=== PATIENT | female | born 2000 | race Two or more races ===

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

== ENCOUNTER 2019-01-11 06:43 | Emergency (ER) | payer OTHER ==
[~2019-01-11] VITALS: Ht 165.1 cm; Wt 104.0 kg
[~2019-01-11 06:43] MED LIST changes: +BIRTH CONTROL; -BUPIVACAINE/PF 0.25% ONE
[2019-01-11 06:46] VITALS: BP 128/84
[2019-01-11 07:22] LABS: AMPHETAMINE SCREEN, URINE Negative (Negative); BARBITURATE SCREEN, URINE Negative (Negative); BENZODIAZEPINE SCREEN, URINE Negative (Negative); CANNABINOID SCREEN, URINE Negative (Negative); COCAINE SCREEN, URINE Negative (Negative); METHADONE SCREEN, URINE Negative (Negative); OPIATE SCREEN, URINE Negative (Negative)
[2019-01-11 07:23] LABS: MICROSCOPIC INDICATED
--- NOTE | 2019-01-11 07:25 | NUR ---
PT TO ROOM FROM [facility], PLACED ON MONITOR. NAD, VSS, CALL LIGHT WITHIN REACH
[2019-01-11 07:32] LABS: CULTURE INDICATED? YES
[2019-01-11 08:08] LABS: BASOPHILS # (AUTO) 0.05 x10^3/uL (0-0.3); BASOPHILS % (AUTO) 1 % (0-1); EOSINOPHILS # (AUTO) 0.14 x10^3/uL (0-0.8); EOSINOPHILS % (AUTO) 1 % (1-7); LYMPHOCYTES # (AUTO) 2.92 x10^3/uL (1-6.1); LYMPHOCYTES % (AUTO) 27 % (22-44); MD NO; MEAN CORPUSCULAR HEMOGLOBIN 25.6 pg (27.0-34.8); MEAN CORPUSCULAR VOLUME 77.4 fL (80-100); MONOCYTES # (AUTO) 0.94 x10^3/uL (0-1.4); MONOCYTES % (AUTO) 9 % (2-9); NEUTROPHILS # (AUTO) 6.89 x10^3/uL (1.8-8.0); NEUTROPHILS % (AUTO) 63 % (42-75); PLATELET COUNT 370 x10^3/uL (130-400); RED BLOOD COUNT 4.97 x10^6/uL (3.82-5.3)
[2019-01-11 08:19] LABS: ALANINE AMINOTRANSFERASE 18 U/L (12-78); ALBUMIN 3.8 g/dL (3.4-5.0); ANION GAP 7 mmol/L (5-15); CHLORIDE 105 mmol/L (98-107); CREATININE 0.69 mg/dL (0.55-1.02)
[2019-01-11 08:22] LABS: ALKALINE PHOSPHATASE 146 U/L (45-117); BILIRUBIN,TOTAL 0.5 mg/dL (0.2-1.0); TOTAL PROTEIN 7.8 g/dL (6.4-8.2)
[2019-01-11] MEDS ORDERED: CEFTRIAXONE 1,000 MG IM ONE (08:30)
[2019-01-11] MEDS ORDERED: CEFTRIAXONE 1,000 MG ONE (09:20)
== END 2019-01-11 09:34 | disposition home or self-care (01) ==
LOC: ED 09:28
DX: N30.01 Acute cystitis with hematuria (principal)
CPT/HCPCS: 36415; 80053; 80307; 81001; 84703; 85025; 87077; 87086; 87186; 96372; 99283; J0696

== ENCOUNTER 2020-10-10 14:11 | Emergency (ER) | payer OTHER ==
[~2020-10-10] VITALS: Ht 165.1 cm; Wt 126.3 kg
[~2020-10-10 14:11] MED LIST changes: +FLUO40CA2 PO
--- NOTE | 2020-10-10 14:38 | NUR ---
CECE PSYCH COAL PULVERIZER OPERATOR AT BEDSIDE FOR EVALUATION.
--- NOTE | 2020-10-10 14:38 | NUR ---
PATIENT WHEELED BACK FROM TRIAGE WITH CHIEF C/O SA. PATIENT REPORTS TAKING FIFTEEN 10 MG LEXAPRO PILLS AROUND 1340 TODAY IN AN ATTEMPT TO END HER LIFE. PILLS ARE NOT PATIENT'S PRESCRIPTION. PATIENT STATES SHE'S BEEN FEELING DEPRESSED, AND SAW HER EX WITH A NEW GIRLFRIEND AND "IT SENT ME OVER THE EDGE." PATIENT IS SUPPOSED TO BE ON ANTI-DEPRESSANTS BUT SHE STATES SHE DOESN'T TAKE HER MEDICATION. PATIENT DENIES HX OF ANY OTHER SA, DENIES HI. BLAYNE, CONNECTED TO NIB ADJUSTER, SITTER IN LINE OF SIGHT.
--- NOTE | 2020-10-10 14:59 | NUR ---
ERMD AT BEDSIDE FOR EVALUATION.
--- NOTE | 2020-10-10 15:12 | NUR ---
PATIENT TRANSFERRED TO ROOM 11, PATIENT TO BE PLACED ON LEGAL HOLD, SITTER IN LINE OF SIGHT.
[2020-10-10 15:31] LABS: BASOPHILS % (AUTO) 0 % (0-1); EOSINOPHILS % (AUTO) 1 % (1-7); LYMPHOCYTES % (AUTO) 33 % (22-44); MEAN CORPUSCULAR HEMOGLOBIN 24.9 pg (27.0-34.8); MEAN CORPUSCULAR HGB CONC 33.5 g/dL (32.4-35.8); MEAN PLATELET VOLUME 7.9 fL (7.4-10.4); MONOCYTES % (AUTO) 15 % (2-9); NEUTROPHILS % (AUTO) 52 % (42-75); PLATELET COUNT 340 x10^3/uL (130-400); RED CELL DISTRIBUTION WIDTH 15.9 % (9.6-15.2)
[2020-10-10 15:35] LABS: ALANINE AMINOTRANSFERASE 23 U/L (12-78); ALBUMIN 3.6 g/dL (3.4-5.0); ANION GAP 6 mmol/L (5-15); CALCIUM 8.6 mg/dL (8.5-10.1); CHLORIDE 109 mmol/L (98-107)
[2020-10-10 15:38] LABS: ALKALINE PHOSPHATASE 141 U/L (45-117); BILIRUBIN,TOTAL 0.3 mg/dL (0.2-1.0); TOTAL PROTEIN 8.2 g/dL (6.4-8.2)
[2020-10-10 15:40] LABS: SALICYLATE LEVEL < 1.7 mg/dL (2.8-20.0)
[2020-10-10 15:41] LABS: MD NO
[2020-10-10 15:53] LABS: AMPHETAMINE SCREEN, URINE Negative (Negative); BARBITURATE SCREEN, URINE Negative (Negative); BENZODIAZEPINE SCREEN, URINE Negative (Negative); CANNABINOID SCREEN, URINE Positive (Negative); COCAINE SCREEN, URINE Negative (Negative); METHADONE SCREEN, URINE Negative (Negative); OPIATE SCREEN, URINE Negative (Negative)
--- NOTE | 2020-10-10 16:04 | NUR ---
PATIENT RESTING IN GURNEY WATCHING TV, NADN, VSS, SITTER IN LINE OF SIGHT.
--- NOTE | 2020-10-10 17:41 | NUR ---
MOM AT BEDSIDE.
--- NOTE | 2020-10-10 17:45 | NUR ---
BREAK RN: PT TALKING WITH MOTHER. VS STABLE. NO ACUTE DISTRESS NOTED. SITTER AT DOOR. WILL CONTINUE TO MONITOR WHILE PRIMARY RN IS ON BREAK.
--- NOTE | 2020-10-10 18:21 | NUR ---
BREAK RN: REPORT GIVEN TO JOVANNY PHILIPPE
--- NOTE | 2020-10-10 18:27 | NUR ---
FOOD TRAY GIVEN TO PATIENT, MOM AT BEDSIDE, KRISTA CISNEROS, SITTER IN LINE OF SIGHT.
--- NOTE | 2020-10-10 18:56 | NUR ---
TP: PACKET FAXED TO [facility], [facility], AND [facility]
--- NOTE | 2020-10-10 19:24 | NUR ---
PATIENT REQUESTING MOM TO TAKE BELONGINGS THAT ARE LOCKED UP. BELONGINGS GIVEN TO MOM.
--- NOTE | 2020-10-10 19:24 | NUR ---
erica carrillo [phone]
--- NOTE | 2020-10-10 20:06 | NUR ---
SPOKE WITH [facility] STAFF, THEY ARE ACCEPTING PATIENT. Addendum: 10/10/20 at 2012 by KEVIN STAFF MEMBER'S NAME IS GENE.
--- NOTE | 2020-10-10 20:15 | NUR ---
SPOKE WITH MOM, GLYNN AND UPDATED ON POC, AND TRANSFER OF PATIENT TO [facility] SCHEDULED AT 2200.
--- NOTE | 2020-10-10 21:12 | NUR ---
WATER PROVIDED TO PATIENT, ANAN, SITTING IN GURNEY WATCHING TV, VSS, SITTER IN LINE OF SIGHT, WILL CONTINUE TO MONITOR.
[2020-10-10 21:34] VITALS: BP 128/59
--- NOTE | 2020-10-10 22:50 | NUR ---
PATIENT SITTING IN GURNEY, WATCHING TV, NADN, SITTER IN LINE OF SIGHT.
--- NOTE | 2020-10-10 23:28 | NUR ---
[facility] HERE FOR PATIENT, PATIENT STABLE AND AMBULATORY WITH STEADY GAIT FROM ED TO AMBULANCE WITH EMS AT SIDE.
== END 2020-10-10 23:29 ==
LOC: ED 15:41
DX: T43.222A Poisoning by selective serotonin reuptake inhibitors, intentional self-harm, initial encounter (principal); F33.9 Major depressive disorder, recurrent, unspecified; R94.31 Abnormal electrocardiogram [ECG] [EKG]; Y92.89 Other specified places as the place of occurrence of the external cause
CPT/HCPCS: 36415; 80053; 80299; 80307; 80320; 80329; 84703; 85025; 93005; 99285; G0480

== ENCOUNTER 2021-04-03 19:31 | Emergency (ER) | payer OTHER ==
[~2021-04-03] VITALS: Ht 165.1 cm; Wt 112.8 kg
[2021-04-03 19:40] VITALS: BP 134/74
--- NOTE | 2021-04-03 20:02 | NUR ---
DR.VAN PARKINSON AT BEDSIDE.
--- NOTE | 2021-04-03 20:21 | NUR ---
Patient given discharge instructions and they have confirmed that they understand the instructions. Patient ambulatory with steady gait.
== END 2021-04-03 20:23 | disposition home or self-care (01) ==
LOC: ED 20:01
DX: S16.1XXA Strain of muscle, fascia and tendon at neck level, initial encounter (principal); S80.11XA Contusion of right lower leg, initial encounter; V49.09XA Driver injured in collision with other motor vehicles in nontraffic accident, initial encounter; Y93.89 Activity, other specified; Y92.410 Unspecified street and highway as the place of occurrence of the external cause; Y99.8 Other external cause status
CPT/HCPCS: 99281

== ENCOUNTER 2021-06-23 21:30 | Emergency (ER) | payer OTHER ==
[~2021-06-23] VITALS: Ht 165.1 cm; Wt 105.0 kg
[2021-06-23] MEDS ORDERED: SODIUM CHLORIDE FLUSH 10ML SYR IVF ONE (22:00)
[2021-06-23] MEDS ORDERED: SODIUM CHLORIDE 0.9% 1,000ML IVBOLUS ONE (22:00)
[2021-06-23 23:04] LABS: BASOPHILS % (AUTO) 1 % (0-1); EOSINOPHILS % (AUTO) 0 % (1-7); LYMPHOCYTES % (AUTO) 24 % (22-44); MEAN CORPUSCULAR HEMOGLOBIN 26.2 pg (27.0-34.8); MEAN PLATELET VOLUME 8.7 fL (7.4-10.4); MONOCYTES % (AUTO) 10 % (2-9); NEUTROPHILS % (AUTO) 65 % (42-75); PLATELET COUNT 347 x10^3/uL (130-400); RED BLOOD COUNT 5.28 x10^6/uL (3.82-5.3); RED CELL DISTRIBUTION WIDTH 15.6 % (9.6-15.2)
[2021-06-23 23:11] LABS: ALANINE AMINOTRANSFERASE 20 U/L (12-78); ALBUMIN 3.2 g/dL (3.4-5.0); ANION GAP 8 mmol/L (5-15); CALCIUM 9.6 mg/dL (8.5-10.1); CHLORIDE 103 mmol/L (98-107)
[2021-06-23 23:29] LABS: ALKALINE PHOSPHATASE 104 U/L (45-117); BILIRUBIN,TOTAL 0.5 mg/dL (0.2-1.0); CREATININE 0.58 mg/dL (0.55-1.02); TOTAL PROTEIN 8.2 g/dL (6.4-8.2)
[2021-06-24] MEDS ORDERED: ONDANSETRON 2MG/ML, 2ML ONE
[2021-06-24] MEDS ORDERED: ONDANSETRON 2MG/ML, 2ML IVPush ONE
[2021-06-24 00:26] LABS: MICROSCOPIC INDICATED
--- NOTE | 2021-06-24 00:56 | NUR ---
PT STRAIGHT CATH. STERILE FIELD MAINTAINED. TOLERATED WELL. URINE SAMPLE WALKED TO LAB
[2021-06-24 01:01] LABS: MICROSCOPIC INDICATED
[2021-06-24 01:36] VITALS: BP 134/80
== END 2021-06-24 01:38 | disposition home or self-care (01) ==
LOC: ED 22:00
DX: O23.11 Infections of bladder in pregnancy, first trimester (principal); O21.0 Mild hyperemesis gravidarum; E86.0 Dehydration; E86.9 Volume depletion, unspecified; Z3A.10 10 weeks gestation of pregnancy
CPT/HCPCS: 36415; 76801; 80053; 81001; 84702; 85025; 86901; 87086; 96361; 96374; 99284; J2405; J7030